=== PATIENT | female | born 1965 | race Caucasian/White ===

== ENCOUNTER → 2017-07-10 10:42 | Outpatient (CLI) | payer OTHER | END | disposition home or self-care (01) | LOC: D.CT 10:42 | DX: K92.1 Melena (principal) ==

== ENCOUNTER → 2017-07-26 07:16 | Outpatient (CLI) | payer OTHER | END | disposition home or self-care (01) | LOC: D.US 07:16 | DX: K21.9 Gastro-esophageal reflux disease without esophagitis (principal); R10.13 Epigastric pain ==

== ENCOUNTER → 2017-08-13 07:21 | Outpatient (CLI) | payer OTHER | END | disposition home or self-care (01) | LOC: D.OPS 07:21 | DX: K21.9 Gastro-esophageal reflux disease without esophagitis (principal); R10.13 Epigastric pain ==

== ENCOUNTER 2017-09-17 06:00 | Day surgery (SDC) | payer OTHER ==
[2017-09-16 13:44] LABS: BASOPHILS 0.4 % (0-2); EOSINOPHILS 4.9 % (0-7); HEMATOCRIT 39.1 % (36.0-48.0); HEMOGLOBIN 12.3 g/dL (12-16); IMMATURE GRANULOCYTES 0.1 % (0-5); LYMPHOCYTES 13.1 % (15-50); MCH 24.6 pg (26.0-34.0); MCHC 31.5 g/dL (31.0-37.0); MCV 78.2 fL (80.0-100.0); MEAN PLATELET VOLUME 10.5 fL (7.4-10.4); MONOCYTES 6.1 % (2-11); NEUTROPHILS 75.4 % (40-80); PLATELET COUNT 244 10x3/uL (130-400); RDW 15.6 % (11.5-14.5); WBC 9.2 10x3/uL (4.8-10.8)
[2017-09-16 13:57] LABS: CALC OSMOLALITY 284 mosm/kg (275-300); CALCIUM 7.8 mg/dL (8.5-10.1); CARBON DIOXIDE 25.4 mmol/L (21.0-32.0); CHLORIDE - SERUM 107 mmol/L (98-107); CREATININE - SERUM 0.8 mg/dL (0.6-1.3); GLUCOSE 95 mg/dL (74-106); POTASSIUM - SERUM 3.6 mmol/L (3.5-5.1); SODIUM 143 mmol/L (136-145); UREA NITROGEN 12 mg/dL (7-18); eGFR NON AFRICAN AMERICAN 80 mL/min (90-120)
--- NOTE | ~2017-09-17 | OP ---
PATIENT NAME: SHERRIE GARCIA MEDICAL RECORD: [id number] :67 LOCATION:[facility] ADMISSION DATE: SURGEON: SAMEER GARCIA MD DATE OF OPERATION: 09/17/2017 PREOPERATIVE DIAGNOSES: 1. Hiatal hernia. 2. Gastroesophageal reflux disease. 3. Peptic ulcer disease. 4. Thyroid disease. 5. Fibromyalgia. POSTOPERATIVE DIAGNOSES: 1. Hiatal hernia. 2. Gastroesophageal reflux disease. 3. Peptic ulcer disease. 4. Thyroid disease. 5. Fibromyalgia. PROCEDURE: Laparoscopic hiatal hernia repair with Titus fundoplication. SURGEON: Sameer Garcia MD REPORT OF PROCEDURE: The patient's abdomen was prepped and draped in sterile fashion. A Veress needle was inserted in the left upper quadrant and the abdomen was insufflated. An 11-mm Visiport trocar was inserted in the midline just above the umbilicus. At this point, I could visualize the Veress needle and saw there was no sign of any injury to bowel or surrounding structures. The Veress needle was removed. We then placed an 11-mm trocar in the left subcostal region, a 5-mm trocar in the epigastrium, a 5-mm trocar in the left lateral abdomen, and a final 5-mm trocar in the right lateral subcostal region. The left lobe of the liver was elevated and the retractor was placed. The patient did have a moderate sized hiatal hernia with about a third of the stomach present in the chest. The stomach would easily pull down out of the chest into the abdominal cavity, but would fall back into the chest once it was released. We started our dissection on the lesser omentum, taking this down to the right side of the right angy using Harmonic scalpel. We continued our dissection inside of the right side of the right angy up into the thoracic cavity, taking down any of those adhesions that were present. We continued this as far anteriorly and posteriorly as possible. Once we had done this, then we went to the greater curvature of the stomach and further upper third of the stomach, we took down the short gastric using Harmonic scalpel to the left side of the right angy. Again, we got inside the left side of the right angy and extended our dissection into the thoracic cavity. Once inside, we were able to get a 360 degree inspection of the esophagus, the stomach at this point would lie down nicely in the abdominal cavity and would not fall back up into the chest. We then reapproximated the esophageal hiatus with interrupted 0 Polydek times 3. We then performed a 360-degree posterior wrap of the fundus around the distal esophagus using 0 Polydek times 3, the top and the bottom suture incorporating a bite of the esophagus. The wrap appeared to be in good position and did not appear to be too tight. There was no sign of any active bleeding at the conclusion of the case. We irrigated out the abdomen thoroughly with normal saline and then removed the liver retractor. The 11-mm trocar site fascia was closed with interrupted 0 Vicryls using a Lakhwinder-Samuel suture passer device. The ports and insufflation were then removed. The wounds were infused with a OPERATIVE REPORT [id number] SHERRIE GARCIA total of 10 mL of 0.25% Marcaine with epinephrine and then closed with subcutaneous 5-0 Monocryl. COMPLICATIONS: None. CONDITION: Stable. ANESTHESIA: General endotracheal and local. BLOOD LOSS: Minimal. TRANSINT:[id number] Voice Confirmation ID: [id number] DOCUMENT ID: [id number] SAMEER GARCIA MD at 1319 CC: SANJUANA SMITH MD and CORINNE TIM [id number] DICTATION DATE: 09/17/17 0947 [facility] MINER: 09/17/[address] [facility] 09/18/17 [id number] [place] [address]
[~2017-09-17 06:00] MED LIST: ARMOUR THYROID30 MG PO; PROTONIX40 MG PO
[2017-09-17 06:37] VITALS: BP 136/67; BMI 32.3
[2017-09-17 12:58] VITALS: BP 131/68
[2017-09-17 12:59] VITALS: BMI 32.3
[2017-09-17 13:09] VITALS: BP 121/60
[2017-09-17 21:30] VITALS: BP 114/50
[2017-09-18 01:10] VITALS: BP 126/62
[2017-09-18 04:36] VITALS: BP 134/64
[2017-09-18 05:32] LABS: BASOPHILS 0.1 % (0-2); EOSINOPHILS 0.1 % (0-7); HEMATOCRIT 37.6 % (36.0-48.0); IMMATURE GRANULOCYTES 0.3 % (0-5); LYMPHOCYTES 9.8 % (15-50); MCH 24.8 pg (26.0-34.0); MCHC 31.9 g/dL (31.0-37.0); MCV 77.7 fL (80.0-100.0); MEAN PLATELET VOLUME 10.6 fL (7.4-10.4); MONOCYTES 8.1 % (2-11); NEUTROPHILS 81.6 % (40-80); PLATELET COUNT 268 10x3/uL (130-400); RBC 4.84 10x6/uL (4.00-5.40); RDW 15.7 % (11.5-14.5)
[2017-09-18 05:39] LABS: WBC 14.5 10x3/uL (4.8-10.8)
[2017-09-18 05:52] LABS: CALC OSMOLALITY 275 mosm/kg (275-300); CALCIUM 7.9 mg/dL (8.5-10.1); CARBON DIOXIDE 23.2 mmol/L (21.0-32.0); CHLORIDE - SERUM 105 mmol/L (98-107); CREATININE - SERUM 0.8 mg/dL (0.6-1.3); GLUCOSE 90 mg/dL (74-106); POTASSIUM - SERUM 3.9 mmol/L (3.5-5.1); SODIUM 138 mmol/L (136-145); UREA NITROGEN 12 mg/dL (7-18); eGFR NON AFRICAN AMERICAN 80 mL/min (90-120)
[2017-09-18 08:45] VITALS: BP 126/64
[2017-09-18 12:37] VITALS: BP 122/60
[2017-09-18] MEDS ORDERED: REGLAN10 MG PO (12:48)
[2017-09-18] MEDS ORDERED: HYDROCODONE-APA1 TAB PO (12:48)
== END 2017-09-18 15:31 | disposition home or self-care (01) ==
LOC: D.OPS 06:00 → D.MS 06:00 → D.OPS 08:00 → D.PAN 08:00 → D.MS 12:42 → D.OPS 09-18 15:31
PROVIDERS: Surgery
DX: K21.9 Gastro-esophageal reflux disease without esophagitis (principal); K44.9 Diaphragmatic hernia without obstruction or gangrene; K27.9 Peptic ulcer, site unspecified, unspecified as acute or chronic, without hemorrhage or perforation; E07.9 Disorder of thyroid, unspecified; M79.7 Fibromyalgia; Z01.812 Encounter for preprocedural laboratory examination

== ENCOUNTER → 2018-01-14 07:29 | Outpatient (CLI) | payer OTHER ==
[~2018-01-14 07:29] MED LIST changes: +HYDROCODONE-APA1 TAB PO; +REGLAN10 MG PO
== END | disposition home or self-care (01) ==
LOC: D.RAD 07:29
DX: Z98.890 Other specified postprocedural states (principal)

== ENCOUNTER 2019-09-21 13:30 | Outpatient (CLI) | payer OTHER | END 2019-09-21 14:00 | disposition home or self-care (01) | LOC: D.MAMMO 13:30 | PROVIDERS: ATTEND Family Medicine | DX: Z12.31 Encounter for screening mammogram for malignant neoplasm of breast (principal) ==

== ENCOUNTER → 2021-01-02 13:11 | Outpatient (CLI) | payer OTHER | LOC: D.MAMMO 11:30 | PROVIDERS: ATTEND Family Medicine | DX: Z12.31 Encounter for screening mammogram for malignant neoplasm of breast (principal) ==